=== PATIENT | female | born 1955 | race Caucasian/White ===

== ENCOUNTER 2022-02-20 07:15 | Day surgery (SDC) | payer MEDICAID, SELFPAY ==
[~2022-02-20] VITALS: Ht 160 cm; Wt 73.0 kg
[2022-02-20] MEDS ORDERED: fentaNYL CITRATE/PF 100 MCG/2 ML AMP ONE (07:20)
[2022-02-20] MEDS ORDERED: MIDAZOLAM HCL 5 MG/5 ML VIAL ONE (07:20)
[2022-02-20 11:09] VITALS: BP_SYST 112
== END 2022-02-20 10:10 | disposition home or self-care (01) ==
LOC: SDS 07:15 → SMU 07:16 → SDS 10:10
PROVIDERS: ATTEND Internal Medicine
DX: Z12.11 Encounter for screening for malignant neoplasm of colon (principal); D12.3 Benign neoplasm of transverse colon; K57.30 Diverticulosis of large intestine without perforation or abscess without bleeding; Z20.822 Contact with and (suspected) exposure to COVID-19; Z79.899 Other long term (current) drug therapy
CPT/HCPCS: 36415; 45380; 45385; 82962; 87426; 88305; 99152; 99153; G0378; J2250; J3010; U0003